=== PATIENT | female | born 1970 | race African-American/Black ===

== ENCOUNTER 2020-12-21 19:23 | Emergency (ER) | payer OTHER ==
[~2020-12-21] VITALS: Ht 167.6 cm; Wt 114.8 kg
[2020-12-21] MEDS ORDERED: BLOOD PRESSURE MED (19:42)
[2020-12-21] MEDS ORDERED: LORAZEPAM0.5 GM (19:42)
[2020-12-21 20:22] VITALS: BP 152/110
== END 2020-12-21 20:22 | disposition left against medical advice (07) ==
LOC: M.ERS 19:23
DX: M79.605 Pain in left leg (principal); Z53.21 Procedure and treatment not carried out due to patient leaving prior to being seen by health care provider